=== PATIENT | male | born 1940 | race Caucasian/White ===

== ENCOUNTER 2019-01-18 07:58 | Inpatient (IN) ==
[2019-01-18] MEDS ORDERED: NITROGLYCERIN TOP ONE (08:26)
[2019-01-18] MEDS ORDERED: ASPIRIN PO ONE (08:26)
--- NOTE | 2019-01-18 08:31 | PROVIDER DOCUMENTATION ---
HPI-Chest Pain - General Chief Complaint: Chest Pain Stated Complaint: CHEST PAIN Time Seen by Provider: 01/18/19 08:08 Source: patient, family (daughter) Allergies/Adverse Reactions: Patient Allergies Allergy/AdvReac Type Severity Reaction Status Date / Time meperidine [From Demerol] AdvReac Unknown Verified 02/25/18 20:52 morphine AdvReac Unknown Verified 02/25/18 20:53 Home Medications: Home Medication List Medication Instructions Recorded Confirmed Last Taken Type NK [No Home Medications] 01/18/19 01/18/19 Unknown History - History of Present Illness-CP Nature of Presenting Problem: Awoke from sleep at 0030 last night. COuldn't get comfortable. Mid sternal aching chest pain, radiating to his shoulders and a little bit to his throat. No nausea, SOB, no diaphoresis. Never had this chest pain before. Pain is minimally in his shoulders at this time. Saw Dr. Muhammad 2 months ago for "a leaky valve." Saw PCP yesterday for sinus trouble and told had a "loud heart murmur." No fever, chills, n/v, cough, abdominal pain. Did not take his meds today. Location: reports: substernal Chest Pain Radiation: reports: neck, shoulders Quality of Pain: reports: aching Severity in ED: moderate Onset/Duration: last night Timing: still present, improving, intermittent, changing over time Context/Activities at Onset: reports: sleep Modifying Factors: improves with: nothing (seems to improve or worsen the pain) Associated Symptoms: denies: abdominal pain, back pain, diaphoresis, dizziness, fatigue, nausea, shortness of breath, vomiting Nitro Today/Relief: no nitro taken today Aspirin Treatment Today: no aspirin today Prior Chest Pain/Cardiac Workup: reports: echocardiography, stress test Similar Symptoms Previously?: No Recently Seen Here or By Another Healthcare Provider: Yes (As above, saw his PCP yesterday, sees Dr. Muhammad for cardio) Review of Systems - Adult - REVIEW OF SYSTEMS - ADULT Constitutional: reports: no symptoms reported Eyes: reports: no symptoms reported Ears, Nose, Mouth & Throat: reports: see HPI, sinus problem Cardiovascular: reports: see HPI, chest pain, heart murmur. denies: edema, irregular heart rate, orthopnea, palpitations, poor circulation, PND, syncope Respiratory: reports: no symptoms reported Gastrointestinal: reports: no symptoms reported Genitourinary: reports: no symptoms reported Musculoskeletal: reports: no symptoms reported Integumentary: reports: no symptoms reported Neurological: reports: no symptoms reported Psychiatric: reports: no symptoms reported Endocrine: reports: no symptoms reported Hematologic/Lymphatic: reports: no symptoms reported Allergic/Immunologic: reports: no symptoms reported All Other Systems: Reviewed and Negative Past History - Adult - PAST MEDICAL HISTORY-ADULT Review of Records: reports: Old Records Reviewed, Nursing Assessment Review, Medications Reviewed, Social history reviewed & non-contributory. Major Childhood Illnesses: reports: denies history Cardiovascular: reports: HTN, heart valve problem, hyperlipidemia Respiratory: reports: denies history Gastrointestinal: reports: denies history Obstetrical/Gynecological: reports: denies history Genitourinary: reports: denies history Musculoskeletal: reports: denies history Neurological: reports: denies history Endocrine/Immune: reports: denies history Other Conditions: reports: denies history - PRIOR SURGERIES/PROCEDURES Surgical/Procedure History: reports: reviewed, not pertinent - IMMUNIZATION STATUS Childhood Immunizations: See Nurse Assessment Flu Vaccine: See Nurse Assessment - FAMILY HISTORY Family History: CAD over 55 yo - SOCIAL HISTORY Smoking: non-smoker Substance Use: none/never Alcohol Use Frequency: never Living Situation: family Physical Exam-General - PHYSICAL EXAM-ADULT Initial Vital Signs Reviewed: Yes (VSSAF) - CONSTITUTIONAL General Appearance: appears well, alert, no apparent distress - EYES Eyes: PERRL/EOMI, pink conjunctivae - HEAD, EARS, NOSE, MOUTH & THROAT HENMT: normocephalic/atraumatic, moist mucous membranes, normal ENT inspection, pharynx normal - NECK Neck: non-tender, full range of motion, supple, normal inspection - RESPIRATORY Respiratory: chest non-tender, lungs clear, normal breath sounds, no pleuratic chest pain, no respiratory distress, no accessory muscle use - CARDIOVASCULAR Cardiovascular: normal peripheral pulses, regular rate, rhythm, no gallop, no JVD, systolic murmur (heard best at apex and LLSB, 3/6), PMI displaced laterally - GASTROINTESTINAL (ABDOMEN) Abdominal Exam: normal bowel sounds, non tender, soft, no organomegaly, no pulsatile mass - LYMPHATIC Lymphatic: no adenopathy - MUSCULOSKELETAL Back Exam: normal inspection, no CVA tenderness, no vertebral tenderness Extremity: normal range of motion, non-tender, normal gait, normal inspection, no calf tenderness, normal capillary refill, pedal edema - SKIN Integumentary: normal color, normal turgor, warm/dry - NEUROLOGIC Neurologic: advanced solutions architect II-XII nml as tested, grossly normal, no motor/sensory deficits - HEART Score HEART Score: History: Moderately Suspicious HEART Score: ECG: Significant ST-Deviation HEART Score: Age: > or = 65 Years HEART Score: Risk Factors for Atherosclerotic Disease: > or = 3 Risk Factors or History of Atherosclerotic Disease HEART Score: Troponin: < or = Normal Limit (HIGH RISK OF MACE) Total HEART Score:: 7 Progress - PLAN OF CARE/RESULTS Progress/Plan/Lab Results: Vital Signs - 8 hr 01/18/19 07:59 Temperature 98.5 F Pulse Rate 72 Respiratory Rate 18 Blood Pressure 148/84 O2 Sat by Pulse Oximetry 95 Laboratory Results - last 24 hr 01/18/19 01/18/19 01/18/19 08:14 08:14 08:14 WBC 10.05 RBC 4.91 Hgb 15.9 Hct 46.9 MCV 95.5 MCH 32.4 H MCHC 33.9 RDW Std Deviation 14.0 Plt Count 171 MPV 11.8 H Neut % (Auto) 68.6 Lymph % (Auto) 21.3 [place]ades % (Auto) 9.1 Eos % (Auto) 0.7 Baso % (Auto) 0.3 Neut # (Auto) 6.90 H Lymph # (Auto) 2.14 [place] # (Auto) 0.91 H Eos # (Auto) 0.07 Baso # (Auto) 0.03 PT INR PTT (Actin FS) Sodium 140 Potassium 4.4 Chloride 100 Carbon Dioxide 28 Anion Gap 12 BUN 35 H Creatinine 0.9 Estimated GFR/1.73 m2 > 60 BUN/Creatinine Ratio 39 Glucose 91 Calculated Osmolality 287 Calcium 9.6 Total Bilirubin 0.47 AST 26 ALT 25 Alkaline Phosphatase 78 Creatine Kinase 105 Troponin T Uvl-P-Pgktikydwqo Pept 101 Total Protein 7.6 Albumin 4.7 Globulin 2.9 Albumin/Globulin Ratio 1.6 01/18/19 01/18/19 08:14 08:14 WBC RBC Hgb Hct MCV MCH MCHC RDW Std Deviation Plt Count MPV Neut % (Auto) Lymph % (Auto) [place]ades % (Auto) Eos % (Auto) Baso % (Auto) Neut # (Auto) Lymph # (Auto) [place] # (Auto) Eos # (Auto) Baso # (Auto) PT 13.3 INR 1.00 PTT (Actin FS) 32.5 Sodium Potassium Chloride Carbon Dioxide Anion Gap BUN Creatinine Estimated GFR/1.73 m2 BUN/Creatinine Ratio Glucose Calculated Osmolality Calcium Total Bilirubin AST ALT Alkaline Phosphatase Creatine Kinase Troponin T < 0.010 Eok-J-Rnpbflhajly Pept Total Protein Albumin Globulin Albumin/Globulin Ratio Orders Category Date Time Status Cardiac Monitoring DIRECTED Care 01/18/19 08:26 Active Nursing- Obtain EKG once Care 01/18/19 09:41 Active Oxygen Therapy- ED Nursing DIRECTED Care 01/18/19 08:26 Active Saline Loc NOW Care 01/18/19 08:26 Active CHEST-2 VIEWS [RAD] Stat Exams 01/18/19 08:26 Completed CBC WITH ELECTRONIC DIFF [HEME] Stat Lab 01/18/19 08:14 Completed CK PROFILE [SP CHEM] Stat Lab 01/18/19 08:14 Completed COMPREHENSIVE METABOLIC PANEL [CHEM] Stat Lab 01/18/19 08:14 Completed PRO B-NATRIURETIC PEPTIDE Stat Lab 01/18/19 08:14 Completed PROTIME WITH INR [COAG] Stat Lab 01/18/19 08:14 Completed PTT [COAG] Stat Lab 01/18/19 08:14 Completed TROPONIN T Stat Lab 01/18/19 08:14 Completed TROPONIN T Stat Lab 01/18/19 09:40 Uncollected Aspirin Med 01/18/19 08:26 Discontinued 325 mg PO NOW ONE Fentanyl Med 01/18/19 09:19 Discontinued 25 microgm IV NOW ONE Metoprolol [Lopressor] Med 01/18/19 09:18 Discontinued 25 mg PO NOW ONE Nitroglycerin Med 01/18/19 08:26 Discontinued 0.5 inch TOP NOW ONE Ondansetron [Zofran] Med 01/18/19 09:18 Discontinued 4 mg IV NOW ONE CP/SOB/Palp >45 yrs of Age Stat Oth 01/18/19 08:26 Ordered EKG [EKG] Stat Ther 01/18/19 08:26 Draft EKG [EKG] Stat Ther 01/18/19 09:41 Ordered Result Diagrams: 01/18/19 08:14 01/18/19 08:14 - REASSESSMENT Reassessment #1 Time Reassessed: 08:36 Status: unchanged (OLD chart, EKGs reviewed. Saw Dr. Muhammad 12/15/18 and had the following ECHO done: ECHOCARDIOGRAPHIC REPORT ORDER DATE: 12/14/2018 INDICATION: Aortic stenosis, hypertension, CVA. FINDINGS: 1. Right atrium appears normal in size at 2.9 cm. 2. Mild tricuspid regurgitation. RV systolic pressure of 31. 3. Normal RV size and systolic function. 4. No significant pulmonic insufficiency. 5. Severe left atrial enlargement with a volume index of 62. 6. No mitral valve prolapse. Mild mitral regurgitation. No evidence of mitral stenosis. 7. Normal LV size, end-diastolic dimension of 4.7. Moderate left ventricular hypertrophy with a posterior and interventricular septal wall thickness of 1.6 cm each. Normal LV systolic function. Estimated EF of 68% with normal wall motion. 8. Aortic valve is calcified with restriction of motion consistent with moderate mitral stenosis. Peak gradient across the valve is 50, with a mean of 27. Valve area is 1.1 cm2 by the continuity equation. 9. Aorta appears somewhat dilated with a dimension of 4 cm. 10. No pericardial effusion seen. cc: Cem Muhammad MD <Electronically signed by Cem Muhammad MD> 12/16/18 1102 Dictated by: Cem Muhammad MD Dictated: 12/15/18 1325 Transcribed by: OST - 12/15/18 2102 CC: Cem Muhammad MD) Reassessment #2 Time Reassessed: 09:20 Status: improving (Patient states feels a little better, but shoulders are still aching. Have given ASA and NTP. BP still elevated (diastolic 103). Will give po metoprolol and IV fentanyl/zofran for pain) - EKG 1 Time of EKG reading by physician:: 08:15 EKG Read and Signed by:: Devon Obrien EKG Interpretation (*Must complete 3 of following elements*): Abnormal Rate: 71 Rhythm: NSR [place]: left QRS: Q Waves present (anteriorly), poor R wave progression NH Interval: prolonged ST Wave: non-specific ST changes (inverted T-waves and flattening in III, aVF, V1, V2, V3, WHICH IS NEW FROM 05/30/18) Prior EKG Comparison: changes noted (as above) - XRAY 1 XRAY Study: Chest Impression: Abnormal, See EMR Report (EXAM: CHEST-2 VIEWS 01/18/2019 HISTORY: CP TECHNIQUE: PA and lateral chest COMMENT: There is elevation of the right hemidiaphragm. There is some ill-defined opacity seen posteriorly on the lateral view which may be in the posterior costophrenic sulcus of the right lower lobe. If so this is likely a bronchopneumonia. There are no previous studies available for comparison. The heart size is at the upper limits of normal. IMPRESSION: Questionable right lower lobe pneumonia. 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 Electronically signed by Len Davis 01/18/2019 8:52 AM 01/18/19 0852 Interpreting Physician: Len Davis MD Dictated Date/Time: 01/18/19 0849 cc: Devon Obrien MD; Shruti Martines MD) - CONSULTS/PCP/HOSPITALIST Notification #1 *Consult/PCP/Hospitalist*: Jb cardiology paged at 0921 Time Discussed: 09:39 Consult Disposition: Will see in ED #2 Consult: ERMELINDA Bolanos, for hospitalist paged at 0940 Time Discussed: 09:45 (discussed abnormal CXR with hospitalist, they will follow as there is no cough, fever, or leukocytosis) Consult Disposition: Admit Departure - Departure Date of Disposition Decision: 01/18/19 Time of Disposition Decision: 09:21 DIAGNOSIS: Chest pain due to coronary artery disease, Unstable angina pectoris, Hypertension complications Disposition: ADMITTED INPATIENT 09 Certified Medical Emergency: Emergent Condition: Fair Referrals and Follow-Ups: Shruti Martines MD [Primary Care Provider] - - Critical Care Note This patient required my direct & personal management of CC.: Yes Total Time (mins): 35 (control of BP with IV beta blockers, control of angina with nitroglycerine and IV opioids) Critical Care Statement: This patient required my direct personal management to treat or rule out processes, the absence of which, could potentiallly result in sudden, clinically significant life or limb threatening deterioration. Attestation - Physician/ JOSE FRANCISCO Attestation Patient care was provided by Advanced Practice Provider:: No The physician spent face to face time with patient:: Yes Advanced Practice Provider documentation review:: Supervising physician onsite and consulted in the evaluation and care of this patient. The physician did have a face to face encounter with the patient.
[2019-01-18 08:40] LABS: BASO# 0.03 X1000 (0.0-0.2); BASO% 0.3 % (0.0-0.8); EOS# 0.07 X1000 (0.0-0.7); EOS% 0.7 % (0.0-10.0); HEMATOCRIT 46.9 % (42.0-52.0); HEMOGLOBIN 15.9 g/dL (14.0-18.0); LYMPH# 2.14 X1000 (1.2-3.4); LYMPH% 21.3 % (20.5-51.1); MCH 32.4 PG (27-31); MCHC 33.9 g/dL (33-37); MCV 95.5 FL (81-99); MONO# 0.91 X1000 (0.11-0.59); MONO% 9.1 % (1.7-9.3); MPV 11.8 FL (7.4-10.4); NEUT% 68.6 % (42.2-75.2); PLT 171 X1000 (130-400); RBC 4.91 XMIL (4.7-6.1); WBC 10.05 X1000 (4.8-10.8)
[2019-01-18 08:52] LABS: PROTIME 13.3 Seconds (11.0-16.0)
[2019-01-18 08:53] LABS: PTT 32.5 Seconds (22.3-41.8)
--- NOTE | 2019-01-18 08:54 | Diag Imaging Result Doc PS360 ---
EXAM: CHEST-2 VIEWS 01/18/2019 HISTORY: CP TECHNIQUE: PA and lateral chest COMMENT: There is elevation of the right hemidiaphragm. There is some ill-defined opacity seen posteriorly on the lateral view which may be in the posterior costophrenic sulcus of the right lower lobe. If so this is likely a bronchopneumonia. There are no previous studies available for comparison. The heart size is at the upper limits of normal. IMPRESSION: Questionable right lower lobe pneumonia. 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 Electronically signed by Len Davis 01/18/2019 8:52 AM
[2019-01-18 08:58] LABS: AGAP 12; ALB/GLOB RATIO 1.6; ALBUMIN 4.7 g/dL (3.5-5.0); ALKALINE PHOSPHATASE 78 U/L (32-122); BUN 35 mg/dL (8-22); CALCIUM 9.6 mg/dL (8.8-10.2); CHLORIDE 100 mmol/L (98-107); CK PROFILE 105 U/L (24-204); COSMO 287; CREATININE 0.9 mg/dL (0.7-1.2); ESTIMATED GFR > 60; GLUCOSE 91 mg/dL (70-104); GOT 26 U/L (10-34); GPT 25 U/L (10-44); POTASSIUM 4.4 mmol/L (3.5-5.1); SODIUM 140 mmol/L (136-145); TCO2 28 mmol/L (25-35); TOTAL BILIRUBIN 0.47 mg/dL (0.20-1.00); TOTAL PROTEIN 7.6 g/dL (6.3-8.3)
--- NOTE | 2019-01-18 09:00 | EKG Report ---
Test Performed on : 01/18/2019 08:01:01 AM Test Reason : cp Blood Pressure : / mmHG Vent. Rate : 071 BPM Atrial Rate : 071 BPM P-R Int : 192 ms QRS Dur : 106 ms QT Int : 416 ms P-R-T Axes : 016 -25 -03 degrees QTc Int : 452 ms Normal sinus rhythm. Moderate voltage criteria for LVH, may be normal variant Cannot rule out Septal infarct , age undetermined Abnormal ECG When compared with ECG of 30-MAY-2018 15:41, premature ventricular complexes. are no longer present Minimal criteria for Septal infarct are now present T wave inversion now evident in Inferior leads Nonspecific T wave abnormality now evident in Anterior leads Unconfirmed Result
[2019-01-18] MEDS ORDERED: LOPRESSOR PO ONE (09:18)
[2019-01-18] MEDS ORDERED: ZOFRAN IV ONE (09:18)
[2019-01-18] MEDS ORDERED: FENTANYL IV ONE (09:19)
--- NOTE | 2019-01-18 10:17 | EKG Report ---
Test Performed on : 01/18/2019 09:51:03 AM Test Reason : repeat for CP Blood Pressure : / mmHG Vent. Rate : 072 BPM Atrial Rate : 072 BPM P-R Int : 192 ms QRS Dur : 090 ms QT Int : 416 ms P-R-T Axes : 033 -29 -12 degrees QTc Int : 455 ms Normal sinus rhythm. Voltage criteria for left ventricular hypertrophy Inferior infarct , age undetermined Anteroseptal infarct (cited on or before 18-JAN-2019) Lateral injury pattern ACUTE GA / STEMI Abnormal ECG When compared with ECG of 18-JAN-2019 08:01, (Unconfirmed) Inferior infarct is now present Unconfirmed Result
[2019-01-18] MEDS: AUGMENTIN PO SCH ×2 (16:18→21:43)
--- NOTE | 2019-01-18 16:31 | CARDIOLOGY CONSULTATION ---
DATE: 01/18/2019 CHIEF COMPLAINT: Chest pain. HISTORY OF PRESENT ILLNESS: Mr. Rosado is a 78-year-old male with moderate aortic stenosis, who presented for evaluation of chest pain that began last night around midnight. This woke him from sleep and occurred basically when he was getting up to go to the restroom. He describes it as a burning soreness; it persisted for several hours with no exertional component. No nausea or vomiting. No diaphoresis. He said he also felt somewhat weak during the episodes. He had no syncope. He does not have any pain presently. He had an x-ray in the ER that suggested a possible right lower lobe infiltrate, but he has a significant right hemidiaphragm elevation making interpretation difficult. PAST MEDICAL HISTORY: 1. Significant for moderate aortic stenosis. Most recent echo was in December 2018 showing a normal ejection fraction of 68%. Mean gradient of 27. Valve area 1.1 cm2. 2. Hypertension. 3. Stroke. 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 5. Reflux disease. SOCIAL HISTORY: He does not smoke. No alcohol. FAMILY HISTORY: Hypertension. REVIEW OF SYSTEMS: Ten system review of systems is negative, except for those mentioned in HPI. PHYSICAL EXAM: Vital Signs: Afebrile. Heart rate of 51. Blood pressure 97/65. General: He is no acute distress. HEENT: Oropharynx is moist. Normal dentition. Eye examination is pink conjunctivae, white sclerae. Neck: Examination shows no obvious thyromegaly or thyroid tenderness. Cardiovascular: He sounds to be in a regular rate and rhythm. He has no obvious murmurs. He has no S3. He has no lower extremity edema. Chest: Exam sounds clear bilaterally. No increased work of breathing. Abdomen: Soft, nontender, nondistended. He has no obvious organomegaly. Skin: Exam is Warm and dry throughout without any rashes. Neurological: He is moving all extremities well. He has no lateralizing deficits. PERTINENT DATA: His EKG occurring on the at 8:01 shows sinus rhythm. T-wave inversions noted inferiorly. Subsequent EKG occurring at 9:51 shows sinus rhythm, essentially stable from initial. His chest x-ray suggested a possible right lower lobe pneumonia. His white count is 10, hematocrit 46, platelet count is 171. His sodium is 140, potassium 4.4, BUN 35, creatinine 0.9. Cardiac enzymes are negative. ProBNP 101. ASSESSMENT: Mr. Rosado is a 78-year-old gentleman, who presented with chest pain. PLAN: Differential could be acute coronary syndrome versus pneumonia. He certainly has a history of reflux and this could represent aspiration event. Presently, we will order myocardial perfusion scanning in the morning, and a limited echo to evaluate for wall motion abnormalities, as well as possible pericardial effusion. If this is unremarkable, then he can likely be discharged home from a cardiovascular standpoint. cc: Cem Muhammad MD
--- NOTE | 2019-01-18 19:31 | HISTORY AND PHYSICAL ---
CHIEF COMPLAINT: Chest pain. HISTORY OF PRESENT ILLNESS: This is a very pleasant 78-year-old gentleman with a history of reported valvular heart disease, gastroesophageal reflux disease. He presented to the emergency room with his daughter complaining of midsternal chest pain. He describes this as an aching, cramping type pain. He states that it has actually been present often intermittently for about 3 or 4 months. Usually, he feels an ache in his chest and it goes away. He stated that he woke up with this during the night last night, and at some time it radiated into his shoulders, down to about his elbows, and went up into his throat. He denied any palpitations, dizziness, any nausea, vomiting, diaphoresis, or shortness of breath. He is being evaluated by Dr. Cem Muhammad for "a leaky heart valve" and a murmur. He did state that over the last week, he has had a lot of sinus drainage that would wake him up at night, making him cough, and he was given Augmentin for this. I think he started it on 01/16/2019. He denied any fevers or chills. PAST MEDICAL HISTORY: 1. Leaky heart valve. 2. Heart murmur. 3. Chest pain. 4. Reflux. PAST SURGICAL HISTORY: 1. Cholecystectomy. 2. Transurethral resection of the prostate. 3. Right knee surgery. 4. Hemorrhoid surgery. SOCIAL HISTORY: He denies alcohol, tobacco, or illicit drug use. He has a daughter that lives close and is active in his care. ALLERGIES: Demerol and morphine with unknown reactions. HOME MEDICATIONS: 1. Zantac 300 mg p.o. daily. 2. Omeprazole 40 mg p.o. daily. REVIEW OF SYSTEMS: Discussed with patient with pertinent positives as stated in the HPI. He denied any syncope, dizziness, any palpitations, shortness of breath, cough, fever, chills, any PND, orthopnea, night sweats, recent weight loss or weight gain, any nausea, vomiting, diarrhea, constipation, black or bloody vomitus or stools, any hematuria, dysuria, frequency, urgency. PHYSICAL EXAMINATION: GENERAL: This is a 78-year-old gentleman who is sitting up on the stretcher in the emergency room in no distress. VITAL SIGNS: Blood pressure is 108/62, with a heart rate of 71, respirations are 18, temperature is 98.5, and room air saturations are 98%. In the emergency room, he did have a blood pressure ranging from 130 to 160 over 100 to 104, which has decreased after having fentanyl and metoprolol. HEENT: Head is normocephalic, atraumatic. Mucous membranes are moist. NECK: Supple with trachea midline. He has no JVD. CARDIOVASCULAR: Regular rate and rhythm. S1 and S2 are appreciated. He his 2 to 3/6 systolic murmur is heard best at the left lower sternal border. Calves are nontender bilateral. He has 1+ lower extremity edema that is just below the knee down, which he says is chronic. Peripheral pulses are palpable x4 extremities. PULMONARY: Breath sounds are clear with no increased work of breathing noted. Chest rises and falls symmetric with respiration. Chest wall is nontender to palpation. GASTROINTESTINAL: Abdomen is soft, nontender, nondistended. Bowel sounds in all 4 quadrants. GENITOURINARY: He has no CVA nor suprapubic tenderness. SKIN: Warm and dry. NEUROLOGIC: He is alert and oriented x3. LABS: WBC is 10.05 with a hemoglobin of 15.9, hematocrit 46.9, and platelets of 171,000. INR is 1. Sodium 140, potassium 4.4, BUN 35, creatinine 0.9, with a glucose of 91. Troponins are negative on multiple occasions. EKG at 8 a.m. revealed sinus rhythm at a rate of 71. Repeat EKG at 9:41 revealed sinus rhythm and a rate of 72. ASSESSMENT AND PLAN: 1. Chest pain. The patient will be admitted to the hospital and placed on telemetry. Trend troponins and cardiac profile. Home medicines as appropriate. 2. Hypertension. Blood pressure has decreased since metoprolol. continue to trend and will treat as appropriate according to blood pressure. 3. Gastroesophageal reflux disease. continue his omeprazole as well as his Zantac. 4. Recent diagnosis of sinusitis. continue his Augmentin b.i.d. Of note, the chest x-ray read does state questionable right lower lobe pneumonia with an eventration or paralysis of the right hemidiaphragm. He has no fever, no white count, and he has had no respiratory symptoms. repeat a PA and lateral chest x-ray in the morning and will follow. If he develops any signs or symptoms of infection, then we will dose antibiotics further. For deep venous thrombosis prophylaxis, we will use sequential compression Plan was discussed with Dr. Caruso. Further treatments pending hospital course. Dictated by ERMELINDA Morrison for Jaylan Caruso MD cc: ERMELINDA Morrison MD Lindsay E. Smith, MD [facility]
--- NOTE | 2019-01-19 02:08 | HISTORY AND PHYSICAL ---
ADDENDUM: I have seen and examined Mr. Rosado today. Two family members were at the bedside at the time of the encounter. Mr. Rosado refers to have had some chest discomfort early this morning which just continued to get worse, so he came to the emergency department to be evaluated. Mr. Rosado has a history of aortic stenosis, follows up with Dr. Muhammad. 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 He had a previous history of a stroke with mild left-sided facial weakness. CURRENT VITALS: Blood pressure is 116/62, pulse of 60, respiration is 18, temperature 97.8 degrees. ankle physical exam for most part is unremarkable. IMAGING STUDIES: I have reviewed his imaging studies. The chest x-ray seems to suggest a right lower lobe pneumonia. 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 EKG showed normal sinus rhythm with left axis deviation, normal QRS progression. No ST- segment or T-wave abnormality. The patient's labs have also been reviewed. His current troponin's have actually been done 3 times, they are all within normal range. ASSESSMENT AND PLAN: 1. Atypical chest pain on presentation. Troponin's and EKGs have been unremarkable. The patient is pending a stress test to rule out any underlying coronary artery disease. Patient has been evaluated by Cardiology. 2. History of aortic stenosis. 3. Esophagitis with reflux disease. The patient is on proton pump inhibitor. 4. Questionable right lower lobe pneumonia. Patient has been on antimicrobial therapy recently for sinusitis, so we are going to continue with that. 5. Right hemidiaphragm paralysis noted. So, today Mr. Rosado will be admitted to the medical floor under telemetry monitoring. The troponin will be trended. We will repeat an EKG in the morning. There is a plan for a limited echo and a stress test in the morning. Please refer to the details of the H&P which has been dictated by the GARNETT FIXER in the chart. cc: Jaylan Caruso MD MTDD
--- NOTE | 2019-01-19 06:56 | EKG Report ---
Test Performed on : 01/19/2019 06:34:11 AM Test Reason : CP Blood Pressure : / mmHG Vent. Rate : 058 BPM Atrial Rate : 058 BPM P-R Int : 212 ms QRS Dur : 106 ms QT Int : 444 ms P-R-T Axes : 049 -21 021 degrees QTc Int : 435 ms Sinus bradycardia. with 1st degree AV block. Septal infarct (cited on or before 18-JAN-2019) Abnormal ECG When compared with ECG of 18-JAN-2019 09:51, (Unconfirmed) Questionable change in initial forces of Anterior leads ST no longer depressed in Anterior leads Nonspecific T wave abnormality has replaced inverted T waves in Inferior leads Confirmed by Felisha REYNOLDS, Johny Parham ([id number]) on 01/19/2019 9:05:50 AM
[2019-01-19 07:51] LABS: HEMATOCRIT 42.4 % (42.0-52.0); HEMOGLOBIN 13.8 g/dL (14.0-18.0); MCH 31.9 PG (27-31); MCHC 32.5 g/dL (33-37); MCV 98.1 FL (81-99); MPV 12.1 FL (7.4-10.4); RBC 4.32 XMIL (4.7-6.1); RDW 14.1 % (11.5-14.5); WBC 6.26 X1000 (4.8-10.8)
[2019-01-19 08:07] LABS: AGAP 8; BUN 23 mg/dL (8-22); CALCIUM 8.9 mg/dL (8.8-10.2); CHLORIDE 101 mmol/L (98-107); COSMO 279; CREATININE 0.8 mg/dL (0.7-1.2); ESTIMATED GFR > 60; GLUCOSE 90 mg/dL (70-104); POTASSIUM 4.4 mmol/L (3.5-5.1); SODIUM 138 mmol/L (136-145); TCO2 29 mmol/L (25-35)
[2019-01-19] MEDS ORDERED: LEXISCAN ONE (08:11)
[2019-01-19] MEDS: AUGMENTIN PO SCH ×2 (13:42→13:57)
[2019-01-19 14:24] VITALS: BP 122/61
--- NOTE | 2019-01-19 15:54 | Diag Imaging Result Document ---
PROCEDURE NAME: MYOCARDIAL PERF SCAN, STR/REST - 01/19/2019 STUDY: Rest/stress Lexiscan myocardial perfusion study. REQUESTING PHYSICIAN: Hospitalist and Dr. Cem Muhammad. INDICATION: Chest pain. DESCRIPTION: The patient came into the nuclear lab and received a rest injection of technetium 99 sestamibi 14.9 mCi. Multiple tomographic views of the cardiac structures were obtained at rest. Subsequently, the patient underwent infusion of Lexiscan 0.4 mg. At peak infusion he was injected with technetium 99 sestamibi 43 mCi. Multiple tomographic views of the cardiac structures were obtained following the completion of the protocol. SUMMARY OF THE ELECTROCARDIOGRAPH PORTION OF THE STUDY: Resting ECG shows sinus rhythm with a rate of 59 beats per minute. Resting blood pressure is 113/70. Resting ECG shows a possible septal scar and nonspecific T in the inferior leads. During the protocol the heart rate increased to a maximum of 82 beats per minute. Blood pressure dropped from 113/70 to 88/58. The patient reported no chest pain, shortness of breath, or palpitations. PVCs were noted throughout the entire study relatively frequently, at times almost like in a trigeminy pattern. No significant symptoms were reported by the patient in conjunction with that arrhythmia. No significant change is noted during the recorded phase. CONCLUSION: In summary, the electrocardiographic response to infusion of Lexiscan is nonspecific. SUMMARY OF THE MYOCARDIAL PERFUSION PORTION OF THE STUDY: 1. Poststress tomographic views of the left ventricle showed a very trivial apical anterior defect. 2. There is also a very minimal basal inferior defect. 3. The rest images show that both defects are fixed. 4. There is no inducible ischemia. 5. Both defects are [id number] and focal suggesting attenuation artifact. 6. The polar plots revealed the same. 7. No evidence of neither inducible ischemia nor a myocardial scar. 8. Gated SPECT shows preserved ejection fraction of 59% with end-systolic volume of 61 mL. 9. The lung/heart ratio is normal. 10.TID is normal. CONCLUSION: In summary, this study shows: 1. Nonspecific electrocardiographic response to infusion of Lexiscan. 2. Essentially normal poststress myocardial perfusion scan. 3. No scintigraphic evidence of pharmacologically-induced myocardial ischemia. 4. There is a trivial attenuation artifact involving the apical anterior wall and also the basal inferior wall. 5. Preserved left ventricular systolic function. 6. Ejection fraction is 59% with normal ventricular volumes and no wall motion abnormality. This study represents a low risk for ischemic events. cc: MD Cem Leonard MD
--- NOTE | 2019-01-19 18:14 | ECHO REPORT ---
ORDER DATE: 01/19/2019 INDICATION: Patient with aortic stenosis, chest pain. M-MODE MEASUREMENTS: Left ventricle end diastole: 4.6. Left ventricle end systole: 2.9. Posterior wall: 1.1. Interventricular septum: 1.1. SUMMARY OF 2-DIMENSIONAL IMAGIN. Left ventricular function is normal. Ejection fraction is 66%. The ventricular volumes are somewhat generous. 2. The aortic valve is calcified with restricted opening. The LVOT measures 2.5 cm. The continuous wave Doppler shows a maximum gradient of 55 mmHg and a mean gradient of 33 mmHg across the aortic valve. Valve area using continuity equation is 1.2 cm2. Color flow mapping shows a mild degree of aortic regurgitation. 3. The tricuspid valve shows a mild degree of regurgitation. Pulmonary pressure is estimated at 38 to 43 mmHg. 4. The right-sided chambers do not appear to be dilated. 5. The pulmonic valve was not optimally visualized. 6. The ascending aorta shows enlargement at 4.8 cm. 7. There is no pericardial effusion, mass, or thrombus. Clinical correlation recommended. cc: MD Cem Leonard MD
--- NOTE | 2019-01-20 15:13 | DISCHARGE SUMMARY ---
ADMISSION DATE: 01/18/2019 DISCHARGE DATE: 01/19/2019 DISPOSITION: Home. FOLLOWUP: 1. Dr. Cem Muhammad. 2. Dr. Shruti Martines. CONSULTATION DURING THIS ADMISSION: Cardiology was consulted. The patient was seen by Dr. Muhammad. INVASIVE PROCEDURES DURING THIS ADMISSION: None. IMAGING STUDIES OF SIGNIFICANCE: 1. A chest x-ray did show questionable right lower lobe pneumonia. 2. A myocardial perfusion scan did show no scintigraphic evidence of pharmacological induced myocardial ischemia. There was a preserved left ventricle systolic function with ejection fraction of 59%. ADMISSION DIAGNOSES: 1. Chest pain. 2. Hypertension. 3. Gastroesophageal reflux disease. 4. Recent diagnosis of sinusitis. DIAGNOSES AT THE TIME OF DISCHARGE: 1. Atypical chest pain on presentation with unremarkable troponins and EKGs. Stress test is negative. 2. History of moderate aortic stenosis. 3. Gastroesophageal reflux disease with esophagitis. 4. Recently diagnosed sinusitis, on antimicrobial therapy. 5. 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 6. Large left atrium on echocardiogram. DISCHARGE MEDICATIONS: 1. Continue with Augmentin. 2. Pantoprazole 40 mg p.o. daily. PRESENTING COMPLAINT: Chest pain. HISTORY OF PRESENTING COMPLAINT: Mr. Rosado is a 78-year-old male who has a history of heart murmur and reflux disease, came to the emergency department because of intermittent chest pain for some time. It got really worse on day prior to his presentation. He was initially evaluated. His EKGs and troponin were negative. He was, however, admitted for further medical evaluation. Cardiology was consulted. The patient was seen by Dr. Muhammad who recommended to do an echo and stress test. HOSPITAL COURSE: Mr. Castros chest pain did resolve during the course of the hospital stay and did not have any more chest pain. A stress test was done which also came back negative. We think that Mr. Castros chest pain is probably noncardiac and that it is probably related to his severe reflux disease/esophagitis. He has been started on pantoprazole, and he has been advised to follow up with a GI doctor. Mr. Rosado's echocardiogram also revealed moderate aortic stenosis, and he will need to follow up accordingly with his information systems coordinator, Dr. Cem Muhammad. At the time of the discharge, Mr. Rosado is completely asymptomatic. His vitals are stable. He feels great, and he is no more in chest pain. His physical exam is unremarkable. All the discharge instructions have been discussed with him, and he voiced understanding. His brother was also at the bedside at the time of the encounter. TIME SPENT: The time spent for discharge is 36 minutes. cc: MD Shruti Ramirez MD Peter Johnson, MD
== END 2019-01-19 17:37 | disposition home or self-care (01) | DRG 392 ==
LOC: ED 07:58 → SUATTDRO 12:03 → EDIPHOLD 12:03 → 3N 13:35
PROVIDERS: ATTEND Internal Medicine